=== PATIENT | male | born 1985 | race Caucasian/White ===

== ENCOUNTER 2017-05-15 07:13 | Emergency (ER) | payer MEDICAID, OTHER ==
[2017-05-15] MEDS ORDERED: CYCLOBENZAPRINE HCL 10 MG TABLET PO ONE (08:03)
[2017-05-15] MEDS ORDERED: OXYCODONE-ACETAMINOPHEN 5-325 MG TABLET PO ONE (08:03)
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
[2017-05-15] MEDS ORDERED: KETOROLAC TROMETHAMINE INJ/PF 30 MG/1 ML SDV IV ONE (08:56)
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
[2017-05-15 10:27] VITALS: BP 115/77
== END 2017-05-15 10:27 | disposition home or self-care (01) ==
LOC: ER 07:13
DX: S32.020A Wedge compression fracture of second lumbar vertebra, initial encounter for closed fracture (principal); V48.5XXA Car driver injured in noncollision transport accident in traffic accident, initial encounter
CPT/HCPCS: 99283; 96374; 71010; 72100; 72070; 74177; J1885